=== PATIENT | male | born 1950 | race Caucasian/White ===

== ENCOUNTER 2025-08-20 13:13 | Outpatient (REF) | payer MEDICARE, SELFPAY ==
--- NOTE | ~2025-08-20 | XR_ITS ---
EXAMINATION: XR LUMBOSACRAL SPINE CLINICAL INFORMATION: M41.20 - Other idiopathic scoliosis, site unspecified COMPARISON: None available. TECHNIQUE: 4 views of the lumbar spine, inclusive of flexion and extension views, were obtained. FINDINGS: There is a moderate right convex scoliosis, apex at L3, with a rotatory component. There is straightening of the normal lordosis. There is no fracture, compression deformity, or suspicious bone lesion. There is a trace degenerative retrolisthesis of L2 on L3. There is a 8 mm degenerative appearing anterolisthesis of L4 on L5. Severe multilevel disc degeneration is present, with sclerosis of the endplates most notable at L1-2, L2-3, and L3-4. There is normal facet alignment. There are extensive multilevel hypertrophic degenerative facet changes present. Flexion and extension views demonstrate no definite evidence of instability. Soft tissues demonstrate extensive vascular calcifications. XR/XR lumbar spine 4V min IMPRESSION: 1. Moderate right convex scoliosis with a rotatory component. 2. Severe multilevel lumbar spondylosis. 3. No evidence of instability on flexion and extension. Electronically signed by: Yoan Goldman MD 08/20/2025 03:21 PM EDT
--- NOTE | ~2025-08-20 | XR_ITS ---
EXAM: CR Xr Scoliosis Survey TECHNIQUE: AP and lateral views of the cervical, thoracic, and lumbar spine. There was stitching of the AP and lateral views. INDICATION: Scoliosis PRIOR: None FINDINGS: Sagittal balance: Positive: The geometric center of the C7 vertebral body projects 5.8 cm anterior to the posterior margin of the superior endplate of S1. Coronal balance: Negative. The geometric center of C7 projected 1.7 cm left of the center of S1. Curvature: Cervical spine: Obscured by overlapping facial structures. Thoracic spine: 12 degrees dextro scoliosis of the mid and upper thoracic spine with apex at T7-8. Thoracolumbar junction: 26 degrees levoscoliosis with apex at T11-12. Lumbar: 29 degrees dextroscoliosis with apex at L3. There is a mild rotational component. L2-3 demonstrates left lateral listhesis L3-4 demonstrates right lateral listhesis. [place] Risser Stage: 5: Completely ossified iliac crest apophysis and closed physis. XR/XR scoliosis survey IMPRESSION: Moderate scoliosis with positive sagittal balance and a mild negative coronal balance. Electronically signed by: Hemant Colón MD 08/20/2025 03:24 PM EDT
== END 2025-08-20 13:14 | disposition home or self-care (01) ==
LOC: HO.XRAY 13:13
PROVIDERS: Visit Provider Physician Assistant
DX: M41.20 Other idiopathic scoliosis, site unspecified (principal)
CPT/HCPCS: 72082; 72110; 99202

== ENCOUNTER 2025-08-20 13:13 | Outpatient (AMB) | payer MEDICARE, SELFPAY ==
[2025-08-20 13:28] VITALS: BMI 25.1
--- NOTE | 2025-08-20 13:28 | HO.SPINEOV ---
Vital Signs 08/20/25 13:28 Height 5 ft 9 in Weight 170 lb BMI 25.1 Intake Visit Reasons: LBP L3-4 Left sciatic pain Intake Note: Mr. Dunaway is here today c/o Left sided low back pain with numbness, burning, and tingling. Continuity Writer Required: No Allergies No Known Allergies Allergy (Verified 08/20/25 13:29) Physical Exam Vital Signs: BMI result Body Mass Index 25.1 Assessment & Plan Assessment & Plan (1) Scoliosis (and kyphoscoliosis), idiopathic: Code(s): M41.20 - Other idiopathic scoliosis, site unspecified Category: Medical Plan This is a very nice 75-year-old gentleman self-referred to the office today, for evaluation of a severe left leg pain that started about 2 months ago. The patient does not recall any specific provocative event that elicited the symptoms. What he describes as pain radiating from the left side of his low back down into his left lateral thigh going into his knee, and radiating down into his outer calf. He did have back pain initially that was quite intense but that seems to have calmed down. He has chronic low back pain issue related to degenerative disc disease that he is managed through the years quite well. The pain in the left leg however is completely different level of intensity than anything he has ever experienced. He has been on Tylenol and hydrocodone in the mornings which helps. By the afternoon and the evening however the pain has almost unbearable. It is aggravated with standing and walking but also can be worsened with prolonged sitting. He did do physical therapy and continues to do it weekly but it is not helping tremendously. He comes in today with an MRI showing advanced degenerative disc disease with scoliotic curvature of the spine and multilevel foraminal narrowing. PMH: He has history of hypertension which is well controlled on medications, high cholesterol, right shoulder surgery. Other than that denies any major systemic disease, cardiopulmonary problems, liver or kidney disease, bleeding disorders, blood clots, cancer, endocrine dysfunction. Social hx: He does not smoke, drink use any recreational drugs Medications: Hydrochlorothiazide, losartan, atorvastatin, gabapentin, hydrocodone Allergies: None Physical exam: Very uncomfortable, has an antalgic gait, positive straight leg raise at 30 degrees, absent reflexes bilaterally at the patella, intact at the Achilles. Strength is normal in the lower extremities. Imaging review: There is a lumbar MRI done in the [facility], July of 2025 which show levoscoliotic curvature of the spine there is disc degeneration at L2-3, L3-4 and L4-5. He has severe left L3 foraminal stenosis, severe left L4 foraminal stenosis. There is significant facet arthropathy at both of these levels. L5-S1 as severe disc degeneration but right L5 severe foraminal narrowing. Impression: 75-year-old male presents with chronic low back pain, but over the last 2 months he has developed a left lumbar radiculopathy which sounds to me like an overlap of the L4 in the L5 dermatomes. He has absent patellar reflexes. He is in tremendous amounts of pain throughout the day and even at nighttime when he is trying to sleep. Sitting for any length of time also can be very uncomfortable in order for him as well. As outlined above in his lumbar MRI he has significant scoliotic curvature and severe disc degeneration with foraminal narrowing. We sent him for his flexion-extension x-rays, and these show that he has anterior translation of L4 and L5 and a standing position as well as significant right-sided translation of L3 over L4 with worsening of his scoliosis compared to his MRI imaging. Dr. Royal and I met with him together, we sat down and reviewed surgical options. We do not think a simple decompression would be enough because in our experience typically this would cause collapse of the foramen further down the road requiring a 2nd follow-up surgery to fix that. Therefore we would stick with the choice of an oblique lumbar interbody fusion L3-4, L4-5 to address the scoliosis, and indirectly decompress the nerves which should give him relief of his leg pain. We quote success at 90% for relief of the leg pain. The patient was given risk and benefits of oblique lumbar interbody fusion surgery including but not limited to infection, hematoma, nerve injury, durotomy, weakness, bowel/bladder injury, persistent pain, and pseudoarthosis or instrumentation failure. We also discussed the option to continue with conservative treatment and patient wishes to proceed with surgery. They are aware they should stop NSAIDs 7 days prior to surgery. All questions were answered to the best of our ability. If there is anything about this patients medical history that we have overlooked or concerns you have about us proceeding with surgery we would appreciate any input you can offer Thank you for allowing us to care for your patient. The total time spent with this visit with this patient was 45 minutes reviewing history, physical exam, lumbar imaging review, and implementation of treatment plan or further diagnostic testing Diaz Royal MD,PhD [facility] Orders: Orders XR lumbar spine 4V min Today M41.20 - Other idiopathic scoliosis, site unspecified XR scoliosis survey Today M41.20 - Other idiopathic scoliosis, site unspecified Coding Level of Care Code New Pt Level 4 (50442) Diagnoses Scoliosis (and kyphoscoliosis), idiopathic M41.20
--- OUTSIDE RECORDS SUMMARY | 2025-08-20 14:43 | XMS_ITS | Clinical Summary ---
Author Organization [facility] Address [address] [place] [address] Care Team Providers Care Icu Nurse Name Role Phone Unavailable Primary Care Provider Unavailabl e Social History Tobacco Use Types Packs/Day Years Used Date Smoking Tobacco: Never Assessed Sex and Gender Information Value Date Recorded Sex Assigned at Not on file Legal Sex Male 8:43 EDT Gender Identity Not on file Sexual Orientation Not on file Plan of Treatment Health Maintenance Due Date Last Done Comments Hepatitis C Screen 1950 Fall Risk Screening 2014 RSV Immunization ( o r 60+ Years) (1 - 1-dose 75+ series) 2024 COVID-19 Vaccine (2023- season) 2024
--- OUTSIDE RECORDS SUMMARY | 2025-08-20 14:43 | XMS_ITS | Clinical Summary ---
Author Organization [facility] [place] [address] Care Team Providers Care Stable Helper Name Role Phone Jocelyn Peres MD Primary Care Provider [phone] Encounters Date Type Department Care Team Description 08/11/2025 Transcribe Orders eDH Incoming Referrals [phone] Jocelyn Peres MD Radiculopathy, lumbar region 08/05/2025 Ancillary Procedure Radiology Library at [facility] [place] [address] Jocelyn Peres MD from Last 3 Months Social History Tobacco Use Types Packs/Day Years Used Date Smoking Tobacco: Never Assessed Sex and Gender Information Value Date Recorded Sex Assigned at Not on file Legal Sex Male 8:15 AM EDT Gender Identity Not on file Sexual Orientation Not on file Plan of Treatment Upcoming Encounters Date Type Department Care Team (Late st Contact Info) Description 09/10/2025 9:00 AM EDT Office Visit Neurosurgery at [facility] [place] [address] Zachary Richards PA [facility] [place] [address] Health Maintenance Due Date Last Done Comments Hepatitis C Screening 1968 Tetanus/Diphtheria/Pertussis Vaccines (1 - Tdap) 04/11 Pneumoccocal Vaccine: 50+ (1 of 1 - PCV) 1999 Zoster vaccine (1 of 2) 1999 Advance Directive 2004 RSV Vaccine (1 - 1-dose 75+ series) 2024 Covid-19 Vaccine (1 - 2023- season) 2025 Influenza (Flu) vaccine (1 o f 1 - Influenza standard series) 07/20/2025 Procedures Procedure Name Priority Date/Time Associated Diagnosis Comments FILM LIBRARY STORAGE ONLY MR SPINE Routine 08/05/2025 12:00 AM EDT from Last 3 Months Results * Film Library- Storage Only MR Spine (08/05/2025 12:00 AM EDT) Narrative [facility] - 08/12/2025 9:17 AM EDT This exam is auto-finalizing. It's purpose is for storage only. us Jocelyn Peres MD IMG FILM LIBRARY ORDERABLES F inal Result [place], [place] from Last [address] [facility] SUPPLEMENT Care Teams Stable Helper Relationship Specialty Start Date End Date Jocelyn Peres MD [address] [place] [address] PCP - General Family Medicine 08/11/25
--- OUTSIDE RECORDS SUMMARY | 2025-08-20 14:43 | XMS_ITS | Encounter Summary ---
Author Organization [facility] Address [address] [place] [address] Care Team Providers Care Cargo Supervisor Name Role Phone Unavailable Primary Care Provider Unavailabl e Encounter Details Date Type Department Care Team (Late st Contact Info) Description 05/13/2025 Lab Requisition [facility] Pathology & Laboratory Medicine - [facility] [address], [place] [address] Outr Resulting Lab, Provider Social History Tobacco Use Types Packs/Day Years Used Date Smoking Tobacco: Never Assessed Sex and Gender Information Value Date Recorded Sex Assigned at Not on file Legal Sex Male 8:43 EDT Gender Identity Not on file Sexual Orientation Not on file documented as of this encounter Plan of Treatment Not on file documented as of this encounter Procedures Procedure Name Priority Date/Time Associated Diagnosis Comments LYME AB Routine 05/12/2025 15:32 EDT documented in this encounter Results * LYME AB (05/12/2025 15:32 EDT) Lyme Ab Negative Negative 05/14/2025 10:36 EDT [facility] Blood VENOUS BLOOD / Unknown 05/12/2025 15:32 EDT 05/13/2025 21:03 EDT us Provider Outr Resulting Lab IMMUNOLOGY AND SEROL OGY ORDERABLES Final Result [facility] [address] [place], [place] [address] documented in this encounter Visit Diagnoses Not on filedocumented in this encounter
== END 2025-08-20 16:44 | disposition home or self-care (01) ==
PROVIDERS: Visit Provider Physician Assistant
DX: M41.20 Other idiopathic scoliosis, site unspecified (principal)
CPT/HCPCS: 99204

== ENCOUNTER → 2025-08-20 14:12 | Outpatient (BNV) | payer MEDICARE, SELFPAY | PROVIDERS: Visit Provider Radiology Diagnostic Radiology | DX: M41.25 Other idiopathic scoliosis, thoracolumbar region (principal); M41.86 Other forms of scoliosis, lumbar region; M47.816 Spondylosis without myelopathy or radiculopathy, lumbar region | CPT/HCPCS: 72110 ==

== ENCOUNTER → 2025-10-06 11:19 | Outpatient (BNV) | payer MEDICARE, SELFPAY | PROVIDERS: Admitting Provider Neurological Surgery; Visit Provider Internal Medicine | DX: R00.1 Bradycardia, unspecified (principal); I44.0 Atrioventricular block, first degree | CPT/HCPCS: 93010 ==

== ENCOUNTER 2025-10-20 06:28 | Inpatient (IN) | payer MEDICARE, SELFPAY ==
--- NOTE | 2025-10-06 | ECG_ITS ---
Test Reason : PREOP Blood Pressure : */* mmHG Vent. Rate : 54 BPM Atrial Rate : 54 BPM P-R Int : 228 ms QRS Dur : 96 ms QT Int : 450 ms P-R-T Axes : 69 -18 31 degrees QTcB Int : 426 ms Sinus bradycardia with 1st degree A-V block Otherwise normal ECG No previous ECGs available Referred By: Tammie Fraire Electronically Signed By: WILLIAM WYATT
[2025-10-06 10:10] VITALS: BP 149/64; PULSE 54; RESP 20; O2SAT 97; BMI 25.4
[2025-10-06 11:41] LABS: Hematocrit 38.5 % (42.0-52.0); Hemoglobin 12.6 g/dl (14.0-18.0); Mean Corpuscular HGB Conc 32.7 g/dl (31.0-36.0); Mean Corpuscular Hemoglobin 30.8 pg (27.0-33.0); Mean Corpuscular Volume 94.1 fL (80.0-98.0); NRBC Abs Auto 0.000 X10*3/uL (0.0-0.012); NRBC Pct Auto 0.0 /100WBC (0.0-0.2); Platelet Count 216 X10*3/uL (160-400); Red Blood Count 4.09 X10*6/uL (4.60-5.80); White Blood Count 5.2 X10*3/uL (4.8-10.8)
[2025-10-06 12:51] LABS: Anion Gap 11 (12-20); Blood Urea Nitrogen 21 mg/dL (9-16); Calcium 9.3 mg/dL (8.4-10.2); Carbon Dioxide 30 mmol/L (22-29); Chloride 104 mmol/L (96-108); Creatinine Clr Calc Pharmacy 54.6; Estimated Glomerular Filt Rate > 60; Potassium 3.5 mmol/L (3.3-5.1); Sodium 141 mmol/L (135-145)
[2025-10-20] VITALS (11 sets, daily range): BP systolic 117–149; BP diastolic 58–71; PULSE 65–77; RESP 8–19; TEMP 36–36.9; O2SAT 94–100; BMI 26.0
--- NOTE | ~2025-10-20 | XR_ITS ---
EXAMINATION: XR LUMBOSACRAL SPINE CLINICAL INFORMATION: s/p L3-5 lumbar fusion COMPARISON: August 2025 TECHNIQUE: Lateral views in standing position. AP view. FINDINGS: Transpedicular screws placed bilaterally from L3 to L5 secured with vertical rods. Status post intervertebral body disc spacer placement at L3-4 and L4-5 levels. Status post likely laminectomies L3-4 and L4-5 levels and possibly L5-S1. There is a 4.7 mm anterolisthesis at L4-5. Endplate sclerosis decreased intervertebral disc height marginal osteophyte formation at L5-S1. Endplate sclerosis marginal osteophyte formation decreased intervertebral disc height at L1-2 Dextroconvex rotoscoliosis apex at L3. Sclerosis and the sacroiliac joints, left greater than the right side. Degenerative changes in the coxofemoral joints and symphysis pubis not fully included in the [id number]. Vascular calcifications, aorta and likely iliac arteries. XR/XR lumbar spine 2-3V IMPRESSION: Unremarkable examination. Electronically signed by: Cortes Barrios MD 10/21/2025 08:33 AM EST [facility]
--- NOTE | ~2025-10-20 | FL_ITS ---
EXAMINATION: FLUOROSCOPY GUIDANCE FOR NEEDLE PLACEMENT CLINICAL INFORMATION: L3-L5 OLIF COMPARISON: Previous lumbar spine x-ray August 2025 TECHNIQUE: Intraoperative fluoroscopic guidance for lumbar spine surgery. FINDINGS: 2 submitted images demonstrate posterior fusion hardware with bilateral rods and intrapedicular screws at L3, L4 and L5 and disc interspacers at L3-4 and L4-5. FLUOROSCOPY TIME: 2.5 minutes DOSE AREA PRODUCT: 77 mGy FL/FL guidance in OR IMPRESSION: Fluoroscopy guidance for lumbar spine surgery. Electronically signed by: Latrice Cohen MD 10/20/2025 12:[address] [facility]
--- OUTSIDE RECORDS SUMMARY | 2025-10-20 06:34 | XMS_ITS | Clinical Summary ---
Author Organization [facility] Address [address] [place] [address] Care Team Providers Care Furniture Crater Name Role Phone Unavailable Primary Care Provider [...] - 1-dose 75+ series) 2024 COVID-19 Vaccine (2024- season) 2025
--- OUTSIDE RECORDS SUMMARY | 2025-10-20 06:34 | XMS_ITS | Clinical Summary ---
Author Organization [facility] [place] [address] Care Team Providers Care Trade Manager Name Role Phone Jocelyn Peres MD Primary Care Provider [phone] Encounters Date Type Department Care Team Description 08/11/2025 Transcribe Orders eDH Incoming Referrals [phone] Jocelyn Peres MD Radiculopathy, lumbar region 08/05/2025 Ancillary Procedure Radiology Library at [facility] [place] [address] Jocelyn Peres MD from Last 3 Months [...] 75+ series) 2024 Covid-19 Vaccine (1 - 2024- season) 2025 Influenza (Flu) vaccine (1 o f 1 - Influenza standard series) 07/20/2025 Procedures Procedure Name Priority Date/Time Associated Diagnosis Comments FILM LIBRARY STORAGE ONLY MR SPINE Routine 08/05/2025 12:00 AM EDT from Last 3 Months Results * Film Library- Storage Only MR Spine (08/05/2025 12:00 AM EDT) Narrative [facility] - 08/12/2025 9:17 AM EDT This exam is auto-finalizing. It's purpose is for storage only. us Jocelyn Peres MD [facility] FILM LIBRARY ORDERABLES F inal Result [facility] [place] from Last 3 Months Insurance MEDICARE [place] [id number] [facility] SUPPLEMENT Care Teams Trade Manager Relationship Specialty Start Date End Date Jocelyn Peres MD [address] [place] [address] PCP - General Family Medicine 08/11/25
--- OUTSIDE RECORDS SUMMARY | 2025-10-20 06:34 | XMS_ITS | Encounter Summary ---
Author Organization [facility] Address [address] [place] [address] Care Team Providers Care Medical Services Coordinator Name Role Phone Unavailable Primary Care Provider Unavailabl e Encounter Details Date Type Department Care Team (Late st Contact Info) Description 05/13/2025 Lab Requisition [facility] Pathology & Laboratory Medicine - [facility] [address] [place], [place] [phone] Outr Resulting Lab, Provider Social History Tobacco [...] Lyme Ab Negative Negative 05/14/2025 10:36 EDT [facility] Blood VENOUS BLOOD / Unknown 05/12/2025 15:32 EDT 05/13/2025 21:03 EDT us Provider Outr Resulting Lab IMMUNOLOGY AND SEROL OGY ORDERABLES Final Result [facility] [address] [place], [place] [phone] documented in this encounter Visit Diagnoses Not on filedocumented in this encounter
[2025-10-20] MEDS: Lactated Ringers 1,000 ML 100 ML IVCONT (06:41)
--- NOTE | 2025-10-20 07:00 | PHA.MEDREC ---
Pharmacy Consult ? Medication Reconciliation Pharmacy has reviewed the medication reconciliation completed by nursing. Pt completed amoxicillin course, and only takes Journavx differently then prescribed to make it last longer. Pt last took all his medications last night, but Journavx was taken this morning.
--- NOTE | 2025-10-20 07:00 | MHC.SHP ---
Pre-Procedural Eval Section A - 24 Hr Update-Section A only Date of Service: 10/20/25 The patient is an INPATIENT: No Changes since office visit: No Cold of Flu in the past 2 weeks, No New Medical Problems, No Changes in Medication and No Patient answered all questions The patient has been examined within 24 hours of the surgical procedure. The History & Physical has been completed within 30 days and I have reviewed it.: No Section B - Complete if H&P > 30 days Chief Complaint: S/P L3-5 Lumbar Fusion Allergies: Allergies Allergy/AdvReac Type Severity Reaction Status Date / Time No Known Allergies Allergy Verified 10/20/25 06:45 Review of Systems Sugical H&P ROS: Negative: Constitution, Cardiovascular, Respiratory, Neurological, Psychiatric, Hem-Onc, Allergic/Immunologic, Gastrointestinal, Genitourinary, Musculoskeletal, Integumentary, Endocrine and Eyes/Ears/Nose/Throat Exam Surgical H&P Exam: Normal: HEENT, Normal: Heart, Normal: Lungs, Normal: Extremities, Normal: Abdomen, Normal: Skin and Normal: Neurological (awake, alert,oriented x 3 ) Plan Diagnosis/Plan: Unchanged L3-4,L4-5 oblique lumbar interbody fusion Time Spent With Patient Time: Total time managing care of this patient today __5__ minutes.
--- NOTE | 2025-10-20 07:15 | HO.ANESPROP2 ---
Documented by User: Tammie Fraire NP 10/07/25 08:46 HPI - Anesthesia Eval Consult details Narrative: 75yo M for L3-4,L4-5 Oblique Lumbar Interbody Fusion, 10/20/25 Current dental infection on amox (10 day course) - symptoms improving, root canal scheduled for 10/2025. Surgical team made aware No CP/SOB with hiking BID [facility] 06/2025 for general malaise, weakness - all testing nml per patient. Does not recall name of hospital. Resolved spontaneously while at ER, no recurrence. Remote dx ? Meniere's ds (1970s), no symptoms for a very long time PMFSH Active Problems Active Problems: All Active Problems Scoliosis (and kyphoscoliosis), idiopathic (Acute) Past Medical History Medical History Lyme disease Dental infection Vertigo Meniere disease Chronic pain Elevated cholesterol Arthritis HTN (hypertension) Scoliosis Family History Family history of problems with anesthesia: No Surgical History Surgical History H/O colonoscopy Hx of rotator cuff surgery History of Problems with Anesthesia: No Social History Social History Are you a primary healthcare or medical to a significant other at home: No Do you presently have visiting nurse or other home services: No Comment: occasional cane Patient Tobacco Use Status: Never used Tobacco Use of substances other than those prescribed or required for medical reasons: No Have you been hit, kicked, punched, or otherwise hurt by someone within the past year? If so, by whom?: No Spiritual Healthcare Practices: no Jew Healthcare Practices: no Cultural Healthcare Practices: no Are you DNR?: No Advance Directives on File: No Meds Allergies Allergy/AdvReac Type Severity Reaction Status Date / Time No Known Allergies Allergy Verified 10/20/25 06:45 Home Medications ?Medication ?Instructions ?Recorded ?Confirmed ?Last Taken ?Type atorvastatin 20 mg tablet 20 mg PO BEDTIME 10/05/25 10/05/25 10/19/25 History fluocinonide 0.05 % topical 1 appl topical BID 10/05/25 10/05/25 Unknown History ointment gabapentin 300 mg capsule 300 mg PO TID 10/05/25 10/05/25 10/19/25 History hydrochlorothiazide 25 mg tablet 25 mg PO BID 10/05/25 10/05/25 10/19/25 History losartan 100 mg tablet 100 mg PO BEDTIME 10/05/25 10/06/25 10/19/25 History tadalafil 20 mg tablet 20 mg PO DAILY PRN Erectile 10/05/25 10/05/25 Unknown History Dysfunction morphine 15 mg tablet,extended 15 mg PO BEDTIME severe pain 10/06/25 10/06/25 10/19/25 History release suzetrigine 50 mg tablet (Journavx) 50 mg PO QAM 10/06/25 10/06/25 10/20/25 05:30 History acetaminophen 500 mg tablet 1,000 mg PO Q6H PRN Pain 10/20/25 10/20/25 10/19/25 History Exam Height,Weight and Vital Signs: Height 5 ft 9 in Weight 78.018 kg Last Vital Signs Pulse 54 10/06/25 10:10 Resp 20 10/06/25 10:10 BP 149/64 H 10/06/25 10:10 Pulse Ox 97 10/06/25 10:10 O2 Del Method Room Air 10/06/25 10:10 Pertinent Lab Results Pertinent Lab Results: Lab Results 10/06/25 10/06/25 10/06/25 Range/Units 11:05 11:05 11:05 WBC (4.8-10.8) X10*3/uL RBC (4.60-5.80) X10*6/uL Hgb (14.0-18.0) g/dl Hct (42.0-52.0) % MCV (80.0-98.0) fL MCH (27.0-33.0) pg MCHC (31.0-36.0) g/dl RDW (11.0-16.0) % Plt Count (160-400) X10*3/uL MPV (9.4-12.4) fL Absolute Nucleated RBC (0.0-0.012) X10*3/uL Nucleated RBC % (auto) (0.0-0.2) /100WBC Sodium (135-145) mmol/L Potassium (3.3-5.1) mmol/L Chloride (96-108) mmol/L Carbon Dioxide (22-29) mmol/L Anion Gap (12-20) BUN (9-16) mg/dL Creatinine (0.5-1.4) mg/dL Estim Creat Clear Calc Estimated GFR Random Glucose (60-115) mg/dL Calcium (8.4-10.2) mg/dL Blood Type A Positive Antibody Screen POSITIVE Antibody Identification Anti-e Antigen Identification C Antigen - NEGATIVE K Antigen - NEGATIVE e Antigen - POSITIVE REINALDO, Polyspecific POSITIVE A Positive REINALDO Work-up IgG=Pos M1o=Zdb A 10/06/ Range/Units 11:06 WBC 5.2 (4.8-10.8) X10*3/uL RBC 4.09 L (4.60-5.80) X10*6/uL Hgb 12.6 L (14.0-18.0) g/dl Hct 38.5 L (42.0-52.0) % MCV 94.1 (80.0-98.0) fL MCH 30.8 (27.0-33.0) pg MCHC 32.7 (31.0-36.0) g/dl RDW 13.2 (11.0-16.0) % Plt Count 216 (160-400) X10*3/uL MPV 9.7 (9.4-12.4) fL Absolute Nucleated RBC 0.000 (0.0-0.012) X10*3/uL Nucleated RBC % (auto) 0.0 (0.0-0.2) /100WBC Sodium 141 (135-145) mmol/L Potassium 3.5 (3.3-5.1) mmol/L Chloride 104 (96-108) mmol/L Carbon Dioxide 30 H (22-29) mmol/L Anion Gap 11 L (12-20) BUN 21 H (9-16) mg/dL Creatinine 1.15 (0.5-1.4) mg/dL Estim Creat Clear Calc 54.6 Estimated GFR > 60 Random Glucose 93 (60-115) mg/dL Calcium 9.3 (8.4-10.2) mg/dL Blood Type Antibody Screen Antibody Identification Antigen Identification REINALDO, Polyspecific Positive REINALDO Work-up Narrative Narrative: EKG 09/2025 Vent. Rate : 54 BPM Atrial Rate : 54 BPM P-R Int : 228 ms QRS Dur : 96 ms QT Int : 450 ms P-R-T Axes : 69 -18 31 degrees QTcB Int : 426 ms Sinus bradycardia with 1st degree A-V block Otherwise normal ECG No previous ECGs available Airway Mallampati Class: III TM Dist: >3cm Neck ROM: Limited (OA) Loose/Missing/Broken Teeth: No (implants, crowns, ) Heart: RRR Lungs: CTAB Assessment and Plan Assessment Anesthesia Assessment: Anesthesia Plan Discussed and PAT Visit Final Anesthetic Review Family History of Problems with Anesthesia: No History of Problems with Anesthesia: No Documented by User: Amira Pena DO 10/20/25 07:17 [facility] Past Medical History Medical History Lyme disease Dental infection Vertigo Meniere disease Chronic pain Elevated cholesterol Arthritis HTN (hypertension) Scoliosis Family History Family history of problems with anesthesia: No Surgical History Surgical History H/O colonoscopy Hx of rotator cuff surgery History of Problems with Anesthesia: No Social History Social History Are you a primary healthcare or medical to a significant other at home: No Do you presently have visiting nurse or other home services: No Comment: occasional cane Patient Tobacco Use Status: Never used Tobacco Use of substances other than those prescribed or required for medical reasons: No Have you been hit, kicked, punched, or otherwise hurt by someone within the past year? If so, by whom?: No Spiritual Healthcare Practices: no Jew Healthcare Practices: no Cultural Healthcare Practices: no Are you DNR?: No Advance Directives on File: No Meds Allergies Allergy/AdvReac Type Severity Reaction Status Date / Time No Known Allergies Allergy Verified 10/20/25 06:45 Home Medications ?Medication ?Instructions ?Recorded ?Confirmed ?Last Taken ?Type atorvastatin 20 mg tablet 20 mg PO BEDTIME 10/05/25 10/05/25 10/19/25 History fluocinonide 0.05 % topical 1 appl topical BID 10/05/25 10/05/25 Unknown History ointment gabapentin 300 mg capsule 300 mg PO TID 10/05/25 10/05/25 10/19/25 History hydrochlorothiazide 25 mg tablet 25 mg PO BID 10/05/25 10/05/25 10/19/25 History losartan 100 mg tablet 100 mg PO BEDTIME 10/05/25 10/06/25 10/19/25 History tadalafil 20 mg tablet 20 mg PO DAILY PRN Erectile 10/05/25 10/05/25 Unknown History Dysfunction morphine 15 mg tablet,extended 15 mg PO BEDTIME severe pain 10/06/25 10/06/25 10/19/25 History release suzetrigine 50 mg tablet (Journavx) 50 mg PO QAM 10/06/25 10/06/25 10/20/25 05:30 History acetaminophen 500 mg tablet 1,000 mg PO Q6H PRN Pain 10/20/25 10/20/25 10/19/25 History Exam Exam Date and Time: 10/20/25 0715 Airway Mallampati Class: III TM Dist: >3cm Neck ROM: Limited Loose/Missing/Broken Teeth: No (patient denies any loose or broken teeth) Heart: S1S2 Assessment and Plan Assessment Anesthesia Assessment: Anesthesia Plan Discussed and Chart Reviewed Final Anesthetic Review Family History of Problems with Anesthesia: No History of Problems with Anesthesia: No NPO: Yes ASA Class: II Final Preanesthetic Review: No Changes in Pt Med Stat, Meds/Allgs Chart Reviewed, Consent Obtained/Reviewed and Anes Risks/Benef Reviewed Patient Risk: Low Procedure Risk: Intermediate Anesthetic Plan Anesthetic Plan: GA and Agree w/ Assess. and Plan Disposition: Standard PACU
--- NOTE | 2025-10-20 09:59 | W.PM.OPN ---
Operative Note Operative Note Date of Service: 10/20/25 Narrative: Preop Diagnosis: 1.) Lumbar degenerative scoliosis 2.) Lumbar radiculopathy Procedure: 1) L3-4, L4-5 discectomy, arthrodesis and implantation cage through an anterolateral, retroperitoneal approach 2) L3-L5 posterior instrumented fusion 3) allograft 4) Injection of 10 cc of Exparel at the transverse process for a muscular erector spinae block and additional Exparel in paravertebral tissue for postop management Consent Informed Consent was obtained for this operation. I have explained the nature, purpose and benefits of the operation. I have discussed the risks and benefit of the operation including possible complications or adverse events with patient/family. Alternative(s) were discussed with the patient with their relative benefits and risks as well as the consequences of not accepting the operation were included in obtaining consent. Surgeon: RAKEL ZURITA MD, PHD Procedure Assisted By: ashvin Roth Description of Procedure This patient is suffering from back pain and leg pain due to lumbar degenerative scoliosis. There is also synovial cyst at L3-4 on the left side. We offered him a 2 level oblique lumbar interbody fusion to partially correct the degenerative scoliosis and to indirectly decompress the nervous structures. The patient was offered an oblique lumbar interbody fusion L3-4, L4-5. The procedure and complications were explained. The patient was consented. The patient was brought to the operating room and endotracheally intubated. The patient was turned in a lateral position with the left side up. Prep and drape was done followed by timeout. A small incision was made in the left lower abdominal quadrant. The muscle fascia was opened after which the 3 muscle layer was split to enter the retroperitoneal space. Dilators were docked in the anterior one third of the L4-5 disc space followed by a retractor. The retractor was opened. The L4-5 disc space was exposed. An annulotomy was done after which an elevator Johnston was used to release the disc material from its endplates and to perforate the contralateral side. A partial discectomy was done. An 8 mm and 10 mm height trial implant was inserted. The discectomy was completed. The endplates were prepared. An 10 x 50 mm with 6 degree lordosis 4 web cage filled with allograft was inserted into the disc space under fluoroscopic guidance. This resulted in partial correction of the scoliosis. The retractor was removed and reinserted over the L3-4 disc space. A lateral osteophyte was resected to enter the disc space. A 7 mm trial implant was inserted followed by an 8 mm. The disc was so degenerated that not much disc material needed to be removed. The endplates were prepared. Another 10 x 50 with 6 degree lordosis 4 web cage filled with allograft was inserted into the disc space that further corrected the scoliosis. Hemostasis was done. The incision was closed in 2 layers. Steri-Strips used to approximate incision. An OpSite with Tegaderm was used to cover the incision. This marked first part of the procedure. The patient was turned prone on the Chencho spine table. 2C arms were installed for fluoroscopy. Prep and drape was done followed by a second timeout. Injection of 10 cc of Exparel at the bilateral L4 transverse processi for a muscular erector spinae block. Two paramedian incisions were made lateral from the L3-L5 pedicles. The muscle fascia was opened after which the muscle layer was split bluntly to expose the posterolateral gutter. The following steps were taken. A pediguard tap was used to create a transpedicular trajectory into the vertebral body. A K wire was placed. A specially designed instrument was advanced over the K wire to decorticate the posterolateral gutter in preparation for the posterolateral fusion. A pedicle screw was advanced over the K wire and the K wire was removed. The steps were done for the bilateral L3, L4 and L5 pedicles. A total of 6 screws were placed with a diameter of 6.5 x 45 mm. Pedicle screws were connected with 75 mm harjinder bilaterally and locked down with locking caps. The extension towers were removed. The posterolateral gutter was filled with allograft to complete the posterolateral L3-L5 fusion Hemostasis was done and the incision was closed in 2 layers. Steri-Strips were used to approximate the incision. An OpSite with tegaderm was used to cover the incision. All sponge and needle counts were correct. Patient was extubated and transferred in stable is to recovery room. This procedure was done with the aid of physician hospital aides and assistants teacher, who participated in placement of the pedicle screws, interpretation of x-rays, placement of allograft and closure of the incisions. Anesthesia: General Estimated Blood Loss (ml): 50 Duration of Surgery: 2 hours and 20 minutes Complications: None Postoperative Plan: Admit to inpatient for clinical observation
[2025-10-20] MEDS: oxyCODONE HCl Immed Release 5 MG TABLET PO ×2 (14:20→19:41)
--- NOTE | 2025-10-20 17:08 | PC.NURSE ---
Pt states allergy to NSAIDs, Rash, states no reaction to Toradol.
[2025-10-21 03:47] VITALS: BP 114/63; PULSE 69; RESP 18; TEMP 35.8; O2SAT 95
--- NOTE | 2025-10-21 06:59 | HO.NEUROPN_ITS ---
Neurosurgery Operative Note Date of Service: 10/21/25 Narrative: POD: 1 Procedure: L3-5 OLIF Frank is a pleasant 75-year-old male who underwent L3-[address] Royal yesterday. He was seen sitting upright in bed room 377 on [address] this morning. He reports that he did experience quite a bit of pain directly after surgery yesterday, however he feels much better this morning. He feels his pain is well controlled with his current pain regimen. Frank reports he has been up OOB walking around his room and is otherwise doing well. He feels his severe left leg pain which he had prior to surgery has significantly improved. He is voiding well, tolerating diet. Afebrile, vital signs stable. Full strength in bilateral lower extremities with normal ROM when testing strength. Back and anterolateral dressings have some staining without signs of hematoma. No active sanguineous drainage. Area is dry. Plan: Percy 75-year-old male who underwent L3-[address] Royal yesterday. He is progressing normally as expected. He meets criteria to be medically discharged home. Prior to discharge we would like to get a set of standing x-rays to evaluate to establish a baseline for his surgical construct postop. He was seen at bedside with Dr. Royal. I will send in a prescription for oxycodone and a stool softener to the pharmacy here at [facility]. Eze Royal MD,PhD [facility]
--- NOTE | 2025-10-21 07:03 | PM.DS ---
DS: Providers Provider Date of Service: 10/21/25 Date of admission: 10/20/25 06:28 Date of discharge: 10/21/25 Primary care physician: Unknown Physician DS: Summary Time Attestation Discharge Coordination Time (in mins): 12 Quality: Safe Use of Opioids Does Pt have an Active Cancer Diagnosis on the Problem List?: No Quality: Stroke Does the patient have a stroke diagnosis?: No Physical Exam Vital Signs: Vital Signs: Last Vital Signs Temp 96.5 F L 10/21/25 03:47 Pulse 69 10/21/25 03:47 Resp 18 10/21/25 03:47 BP 114/63 10/21/25 03:47 Pulse Ox 95 10/21/25 03:47 O2 Del Method Room Air 10/21/25 03:47 BMI result Body Mass Index 26.0 Discharge Plan Discharge Anticipated Discharge Date/Time: 10/21/25 08:30 Patient Disposition: Home, Self-Care Discharge Diagnosis: s/p L3-5 OLIF Referrals: Physician,Unknown J [Primary Care Provider, Medical] - 1 Week Discharge Medications: New oxycodone 5 mg tablet See Rx Instructions .ROUTE .COMPLEX PRN (Reason: pain) Qty: 30 0RF Rx Instructions: Take 1-2 tablets by mouth every 4 hours; Partial Fill upon patient request. docusate sodium 100 mg capsule 100 mg PO BID PRN (Reason: constipation) Qty: 14 0RF Continued atorvastatin 20 mg tablet 20 mg PO BEDTIME fluocinonide 0.05 % ointment 1 appl topical BID gabapentin 300 mg capsule 300 mg PO TID hydrochlorothiazide 25 mg tablet 25 mg PO BID losartan 100 mg tablet 100 mg PO BEDTIME tadalafil 20 mg tablet 20 mg PO DAILY PRN (Reason: Erectile Dysfunction) morphine 15 mg tablet extended release 15 mg PO BEDTIME Journavx 50 mg tablet 50 mg PO QAM acetaminophen 500 mg Tablet 1,000 mg PO Q6H PRN (Reason: Pain) Discharge Orders: Discharge Order (Routine); Ordered 10/21/25 Ordered By: Eze Gonzalez Diet: Advance to usual diet Activity on Discharge: As tolerated Stand Alone Forms: Patient Portal Discharge page Print Language: Polish Activity Restrictions/Additional Instructions: After your spinal surgery we ask you to observe the following restrictions/guidelines: Activity: It is normal to feel some discomfort as you increase your activity, but that will improve with time. We ask you avoid heavy lifting or acitivities that cause pain. As a general rule, 8lbs is a safe limit for lifting right after surgery. Walk as much as you feel comfortable but not to exhaustion. You will feel extra tired the first few days after surgery. Stay well hydrated. It is OK to walk up and down stairs You may return to driving when you are off narcotics (such as vicodin, oxycodone, dilaudid, etc), and you are back to normal functional capacity. If you have any concerns please check with office before driving. Return to work is specific to each patient and each surgery, so please speak with your doctor/PA at first follow up. Please bring paperwork such as FMLA at that time if you need it filled out. Medications: We sent in a short supply of oxycodone to the pharmacy here at [facility] please utilize this for breakthrough pain secondary to [id number] medications. We advised against taking this late at night/before bed if you are going to continue your nighttime Morphine dose. We recommend you take 500mg Tylenol every 4 hours for the first week after surgery, if you do not have any liver issues and can tolerate this medication. Do not exceed 4,000mg daily. We also recommend you take Ibuprofen 600mg every 8 hours for the first week after surgery starting on post op day 1, ?if you do not have any kidney or sugar control issues and can tolerate this medication. Do not exceed 2,000mg daily. We will give you a short supply of narcotics after surgery (usually one weeks worth). If you need more please call the office but do not use more than prescribed. You will need to give our office 48 hours notice if you need narcotics refilled and we do not fill narcotics on weekends or evenings. If you are on a narcotic, it is a good idea to take a stool softener such as colace or senna to avoid constipation If you take blood thinner such as aspirin, Plavix, Coumadin, Effient, Eliquis etc for conditions such as Afib, DVT, Pulmonary embolus, coronary disease, stents etc please speak with your surgeon about specific details as to when you can resume these medications. You can resume NSAIDs on post op day 1 (eg: Motrin, Naproxen, etc). Follow up: Please call the office, , after surgery to arrange a 3 week follow up for wound check. Wound Care: You may remove your dressing on the first day after surgery. ?You may ?leave open to air. Please do not remove the steri strips underneath. they will fall off on their own in one week. IT IS NORMAL FOR THE WOUND TO OOZE OR BE BLOODY FOR A FEW DAYS AFTER SURGERY. ?IF THIS HAPPENS JUST PLACE NEW DRESSING OVER IT TO AVOID STAINING CLOTHES. You may shower on post op day # 1 We ask that you do not let the water soak the wound. If it does get wet, just towel dry lightly. Please do not scrub your incision or place any type of chemical/ointment on the wound. No tub baths, pools or jacuzzis for one month. If you have any leaking or redness from your wound, or fevers, please call the office. Care Plan Goals: Return to normal activity as tolerated Health Concerns: None Plan of Treatment: Follow-up in clinic in 2-3 weeks Assessment: POD: 1 Procedure: L3-5 OLIF Frank is a pleasant 75-year-old male who underwent L3-[address] Royal yesterday. He was seen sitting upright in bed room 377 on [address] this morning. He reports that he did experience quite a bit of pain directly after surgery yesterday, however he feels much better this morning. He feels his pain is well controlled with his current pain regimen. Frank reports he has been up OOB walking around his room and is otherwise doing well. He feels his severe left leg pain which he had prior to surgery has significantly improved. He is voiding well, tolerating diet. Afebrile, vital signs stable. Full strength in bilateral lower extremities with normal ROM when testing strength. Back and anterolateral dressings have some staining without signs of hematoma. No active sanguineous drainage. Area is dry. Plan: Percy 75-year-old male who underwent L3-[address] Royal yesterday. He is progressing normally as expected. He meets criteria to be medically discharged home. Prior to discharge we would like to get a set of standing x-rays to evaluate to establish a baseline for his surgical construct postop. He was seen at bedside with Dr. Royal. I will send in a prescription for oxycodone and a stool softener to the pharmacy here at [facility]. Eze Royal MD,PhD [facility]
[2025-10-21 08:00] VITALS: BP 126/64; PULSE 74; RESP 16; TEMP 36.1; O2SAT 98
[2025-10-21 08:29] VITALS: BP 126/64
[2025-10-21] MEDS: oxyCODONE HCl Immed Release 5 MG TABLET 10 MG PO (08:37)
--- NOTE | 2025-10-21 09:04 | MHC.CM.PN ---
IMM delivered. Patient lives in a home w/ . Independent w/ all are. Has purchased a cane to use post-op. No services. PCP Jocelyn Peres MD @ [facility] [place] in [facility] Reports HCP is his , Lakisha and says he provided a copy to short stay. DP: Medically cleared for dc home w/ family support. at bedside to transport.
--- NOTE | 2025-10-21 09:30 | HO.POSTANES ---
Post Anesthesia Evaluation Post Anesthesia Evaluation Date of Service: 10/21/25 Vital Signs: Vital Signs Temp Pulse Resp BP Pulse Ox O2 Del Method 10/21/25 08:29 126/64 10/21/25 08:00 97.0 F 74 16 126/64 98 Room Air 10/21/25 03:47 96.5 F L 69 18 114/63 95 Room Air Anesthesia: General Mental Status: Awake Pain Control: Satisfactory Nausea/Vomiting: None Hydration: Adequate Anesthesia-Related Issues: No Anes. Related Issues
== END 2025-10-21 09:38 | disposition home or self-care (01) | DRG 458 ==
LOC: HO.SSSA 06:31 → HO.S3 10:56
PROVIDERS: Neurological Surgery; Nurse Practitioner; Admitting Provider Physician Assistant; Visit Provider Physician Assistant
PROC: 0SG10A0 Fusion of 2 or more Lumbar Vertebral Joints with Interbody Fusion Device, Anterior Approach, Anterior Column, Open Approach (ICD-10-PCS; principal; 2025-10-20 07:30)
DX: M54.16 Radiculopathy, lumbar region (principal); M41.56 Other secondary scoliosis, lumbar region; M71.38 Other bursal cyst, other site; Z79.899 Other long term (current) drug therapy
CPT/HCPCS: 36415; 72100; 80048; 85027; 86850; 86870; 86880; 86885; 86900; 86901; 86902; 86905; 86920; 86922; 93005; 97161; 97530; C1713; J0131; J0665; J0666; J0690; J1100; J1171; J1885; J2003; J2371; J2405; J2704; J3010; L8699

== ENCOUNTER 2025-10-20 06:28 | Outpatient (BNV) | payer MEDICARE, SELFPAY | END 2025-10-21 08:13 | PROVIDERS: Admitting Provider Physician Assistant; Visit Provider Radiology Diagnostic Radiology | DX: Z98.1 Arthrodesis status (principal) | CPT/HCPCS: 72100 ==

== ENCOUNTER → 2025-10-20 06:28 | Outpatient (BNV) | payer MEDICARE, SELFPAY | PROVIDERS: Admitting Provider Physician Assistant; Visit Provider Neurological Surgery | DX: Z48.89 Encounter for other specified surgical aftercare (principal) | CPT/HCPCS: 20930; 22558; 22585; 22612; 22614; 22840; 22853; 99024; 99499 ==